=== PATIENT | male | born 1955 | race Caucasian/White ===

== ENCOUNTER → 2018-02-20 | Outpatient (CLI) | payer OTHER ==
[~2018-02-20] MED LIST: ASPI-496 PO; BUDE10.2 INH; CARV6.252 PO; CLOP75TA52 PO; ENAL10TA PO; FLUT1BLS INH; FURO40TA6 PO; LOSA50TA2 PO; METH32TA PO; REGADENOSON 0.4 MG/5 ML SYRINGE ONE; SIMV40TA3 PO; SPIR25TA3 PO; [UNRECOGNIZED DRUG - OTHER] MT
== END | disposition home or self-care (01) ==
LOC: CFH 06:40
PROVIDERS: ATTEND Internal Medicine Cardiovascular Disease
DX: Q24.0 Dextrocardia (principal); I25.2 Old myocardial infarction; I25.5 Ischemic cardiomyopathy; I10 Essential (primary) hypertension; J44.9 Chronic obstructive pulmonary disease, unspecified; I25.89 Other forms of chronic ischemic heart disease; Z95.1 Presence of aortocoronary bypass graft
CPT/HCPCS: 93306; J2785; 78452; 93017; A9502

== ENCOUNTER 2018-04-01 21:43 | Emergency (ER) | payer OTHER ==
[~2018-04-01] VITALS: Ht 175.3 cm; Wt 88.5 kg
[~2018-04-01 21:43] MED LIST changes: -REGADENOSON 0.4 MG/5 ML SYRINGE ONE; -SPIR25TA3 PO; +SPIR25TA5 PO
[2018-04-01] MEDS ORDERED: HYDROcodone/APAP 5/325 TABLET ONE (22:14)
[2018-04-01] MEDS ORDERED: HYDROcodone/APAP 5/325 TABLET PO PRN (22:30)
[2018-04-02 00:10] VITALS: BP 142/84
== END 2018-04-02 00:12 | disposition home or self-care (01) ==
LOC: ED 22:37
DX: M77.8 Other enthesopathies, not elsewhere classified (principal); I25.2 Old myocardial infarction; I25.10 Atherosclerotic heart disease of native coronary artery without angina pectoris; E78.00 Pure hypercholesterolemia, unspecified; J44.9 Chronic obstructive pulmonary disease, unspecified; I11.9 Hypertensive heart disease without heart failure; F17.200 Nicotine dependence, unspecified, uncomplicated; Z95.1 Presence of aortocoronary bypass graft
CPT/HCPCS: 29125; 99284